=== PATIENT | female | born 1985 | race African-American/Black ===

== ENCOUNTER 2020-02-08 18:07 | Emergency (ER) | payer OTHER ==
[2020-02-08] MEDS ORDERED: Ketorolac Tromethamine 30 MG/ML VIAL ONE (18:43)
--- NOTE | 2020-02-08 20:15 | RAD ---
CERVICAL SPINE SERIES THREE VIEWS: 02/08/20 HISTORY: Neck pain. The vertebral bodies are normal in height. Disc spaces are well preserved. Facets are in normal align ment. No soft tissue swelling. Wire is seen directly anterior to the hyoid bone under the chin. IMPRESSION: No acute bony findings. POS: [facility]
== END 2020-02-08 19:34 | disposition home or self-care (01) ==
LOC: ERS 18:07
DX: S16.1XXA Strain of muscle, fascia and tendon at neck level, initial encounter (principal); V89.2XXA Person injured in unspecified motor-vehicle accident, traffic, initial encounter
CPT/HCPCS: 72040; 96372; J1885